=== PATIENT | female | born 1960 | race Caucasian/White ===

== ENCOUNTER 2022-11-06 12:33 | Outpatient (CLI) | payer OTHER, SELFPAY ==
--- NOTE | 2022-11-06 13:30 | XR_ITS ---
WS: [email or web address] SCREENING DEXA SCAN [facility] [employer] CLINICAL INFORMATION: M81.0 - Age-related osteoporosis without current patholog... COMPARISON: None. FINDINGS: The L1-L4 bone mineral density measures 1.062 g/cm2. This corresponds to a T score score of -1.0 and Z score of 0.7. Left femoral neck bone mineral density measures 0.817 g/cm2. This corresponds to a T score of -1.5 an d Z score of -0.3. Right femoral neck bone mineral density measures 0.861 g/cm2. This corresponds to a T score -1.2of an d Z score of 0.1. Mean femoral neck bone mineral density measures 0.839 g/cm2. This corresponds to a T score of -1.3 an d Z score of -0.1. XR/XR DEXA axial skeleton* [id number] IMPRESSION: Osteopenia lumbar spine at the lower end of the range. Osteopenia femoral necks . Patient's FRAX calculated 10 year probability for major osteoporotic fracture i s 10.5 % and osteoporotic hip fracture is 1.5%.
== END 2022-11-06 12:34 | disposition home or self-care (01) ==
LOC: RAD 12:38
PROVIDERS: PCP Nurse Practitioner Family; Visit Provider Nurse Practitioner Family
DX: M81.0 Age-related osteoporosis without current pathological fracture (principal); M85.89 Other specified disorders of bone density and structure, multiple sites
CPT/HCPCS: 77080

== ENCOUNTER → 2023-01-09 10:11 | Outpatient (BNVA) | payer OTHER, SELFPAY | PROVIDERS: PCP Nurse Practitioner Family; Visit Provider Nurse Practitioner Family | DX: E78.5 Hyperlipidemia, unspecified (principal); I10 Essential (primary) hypertension; D64.9 Anemia, unspecified | CPT/HCPCS: 80053; 80061; 85025 ==

== ENCOUNTER → 2023-06-03 11:23 | Outpatient (BNVA) | payer OTHER, SELFPAY | PROVIDERS: PCP Nurse Practitioner Family; Visit Provider Nurse Practitioner Family | DX: E78.5 Hyperlipidemia, unspecified (principal); I10 Essential (primary) hypertension | CPT/HCPCS: 80053; 80061 ==

== ENCOUNTER 2023-07-16 11:27 | Outpatient (CLI) | payer MEDICARE, SELFPAY ==
--- NOTE | 2023-07-16 11:36 | XR_ITS ---
WS: [email or web address] Exam: XR hip BI m 5V wo/w pel* [id number] Date/Time of Exam: 07/16/2023 11:42 AM Reason For Exam: M25.551 - Pain in right hip No fracture or dislocation involving either hip. The bilateral joint compartments are well preserved. Normal bilateral soft tissues. Small nonspecific calcification along the LEFT greater trochanter. IMPRESSION: 1. No fracture or other significant finding.
== END 2023-07-16 11:28 | disposition home or self-care (01) ==
PROVIDERS: PCP Nurse Practitioner Family; Visit Provider Nurse Practitioner Family
DX: M25.551 Pain in right hip (principal); M25.552 Pain in left hip
CPT/HCPCS: 73523

== ENCOUNTER 2023-09-03 09:04 | Outpatient (CLI) | payer MEDICARE, SELFPAY ==
--- NOTE | 2023-09-03 09:30 | MR_ITS ---
WS: [email or web address] MRI RIGHT HIP WITHOUT CONTRAST. COMPARISON: Radiograph 07/16/2023 Multiplanar, multisequence imaging is performed without contrast. No marrow edema or acute fracture is identified. There is very mild narrowing of the RIGHT hip joint but no significant effusion. There is abnormal signal involving the RIGHT gluteus minimus muscle and tendon. There is abnormal sig nal in the tendon over the greater trochanter. There is a focal fluid gap just lateral and inferior t o the greater trochanter and the gluteus minimus tendon. There is edema throughout the gluteus minimu s muscle and fluid along the tendon sheath. Mild atrophy of the RIGHT gluteus minimus muscle. No additional soft tissue or bone abnormalities. Mild bladder wall irregularity and hypertrophy. In p art this is due to under distention. IMPRESSION: 1. Abnormality involving the RIGHT gluteus minimus muscle and tendon. Distal gluteus minimus tendon t ear over the greater trochanter. There is a fluid gap within the tendon and fluid extends along the t endon sheath. 2. Very mild atrophy with edema involving the RIGHT gluteus minimus muscle. 3. No fracture.
== END 2023-09-03 09:05 | disposition home or self-care (01) ==
LOC: RAD 09:05
PROVIDERS: PCP Nurse Practitioner Family; Visit Provider Nurse Practitioner Family
DX: S76.011A Strain of muscle, fascia and tendon of right hip, initial encounter (principal); X58.XXXA Exposure to other specified factors, initial encounter; R60.0 Localized edema
CPT/HCPCS: 73721

== ENCOUNTER 2023-09-10 09:37 | Outpatient (CLI) | payer MEDICARE, SELFPAY ==
--- NOTE | 2023-09-10 09:49 | XRR_ITS ---
PROCEDURE INFORMATION: Exam: XR Right Mandible Exam date and time: 09/10/2023 10:09 AM Age: 62 years old Clinical indication: Jaw pain; Prior surgery; Surgery date: 1-6 months; Surgery type: Tooth pulled 5 months ago on right side and still having pain; Additional info: R68.84 - jaw pain TECHNIQUE: Imaging protocol: XR of the right mandible. Views: 4 or more views COMPARISON: No relevant prior studies available. FINDINGS: Sinuses: Well aerated. No opacification. Bones/joints: No fracture. No lytic or sclerotic bone lesion. Soft tissues: Unremarkable. XR/XR mandible <4V [id number] IMPRESSION: No acute abnormality.
== END 2023-09-10 09:38 | disposition home or self-care (01) ==
LOC: RAD 09:39
PROVIDERS: PCP Nurse Practitioner Family; Visit Provider Nurse Practitioner Family
DX: R68.84 Jaw pain (principal)
CPT/HCPCS: 70100

== ENCOUNTER → 2023-09-23 14:59 | Outpatient (BNVA) | payer MEDICARE, SELFPAY | PROVIDERS: PCP Nurse Practitioner Family; Visit Provider Nurse Practitioner Family | DX: K04.7 Periapical abscess without sinus (principal) | CPT/HCPCS: 87070; 87184 ==

== ENCOUNTER → 2023-11-03 10:14 | Outpatient (BNVA) | payer MEDICARE, SELFPAY | PROVIDERS: PCP Nurse Practitioner Family; Visit Provider Specialist | DX: M70.61 Trochanteric bursitis, right hip; S76.011A Strain of muscle, fascia and tendon of right hip, initial encounter; W19.XXXA Unspecified fall, initial encounter | CPT/HCPCS: 20610; 73502; 99204 ==

== ENCOUNTER 2023-11-13 06:00 | Outpatient (RCR) | payer MEDICARE, SELFPAY | END 2023-11-20 23:59 | disposition home or self-care (01) | LOC: WPT 06:00 | PROVIDERS: Visit Provider Specialist | DX: M70.60 Trochanteric bursitis, unspecified hip (principal) | CPT/HCPCS: 97110; 97112; 97161; 97530 ==

== ENCOUNTER 2023-11-21 06:00 | Outpatient (RCR) | payer MEDICARE, SELFPAY | END 2023-12-21 23:59 | disposition home or self-care (01) | LOC: WPT 06:00 | PROVIDERS: Visit Provider Specialist | DX: M70.60 Trochanteric bursitis, unspecified hip (principal) | CPT/HCPCS: 97110; 97112; 97140; 97530 ==

== ENCOUNTER 2023-12-22 06:00 | Outpatient (RCR) | payer MEDICARE, SELFPAY | END 2024-01-20 23:59 | disposition home or self-care (01) | LOC: WPT 06:00 | PROVIDERS: Visit Provider Specialist | DX: M70.60 Trochanteric bursitis, unspecified hip (principal) | CPT/HCPCS: 97110; 97112; 97140; 97530 ==

== ENCOUNTER 2024-01-08 09:22 | Outpatient (CLI) | payer MEDICARE, SELFPAY ==
--- NOTE | 2024-01-08 09:31 | XR_ITS ---
WS: [email or web address] Exam: XR lumbar spine 2-3V* [id number] Date/Time of Exam: 01/08/2024 9:37 AM Reason For Exam: M54.9 - Dorsalgia, unspecified No acute fracture or dislocation. Mild degenerative anterolisthesis of L4 on L5 secondary to degenera tive facet change. The disc relatively well-maintained. Levoscoliosis. Facet DJD noted from L3-S1. IMPRESSION: 1. Degenerative changes and mild levoscoliosis. 2. No fracture or malalignment. 3. Mild degenerative anterolisthesis of L4 on L5 of about 3 mm.
== END 2024-01-08 09:23 | disposition home or self-care (01) ==
PROVIDERS: PCP Nurse Practitioner Family; Visit Provider Nurse Practitioner Family
DX: M54.50 Low back pain, unspecified (principal); M43.16 Spondylolisthesis, lumbar region; M47.816 Spondylosis without myelopathy or radiculopathy, lumbar region
CPT/HCPCS: 72100; 85651; 86038; 86140; 86431

== ENCOUNTER 2024-01-27 08:22 | Outpatient (CLI) | payer MEDICARE, SELFPAY ==
--- NOTE | 2024-01-27 08:45 | MR_ITS ---
WS: [email or web address] MRI LUMBAR SPINE NONCONTRAST TECHNIQUE: Sagittal T1, T2 and STIR imaging. Axial T1 and T2 imaging. CLINICAL INFORMATION: M54.9 - Dorsalgia, unspecified COMPARISON: 2006 FINDINGS: Counting performed from the craniocervical junction. Mild lumbar curve convex LEFT. 4 nonrib-bearing lumbar vertebral bodies labeled 1 through 4 for the purposes of this dictation. First sacral segment considered L5. Small riblets at T12. Small disc protrusions in the cervical spine [facility] at C5-C6 and C6-C7 with slight contact of the cervical cord. L1-L2: Mild annular bulging. Mild facet arthropathy. Slight narrowing of the subarticular recess bila terally. L2-L3: Mild annular bulging. Mild central canal stenosis. Impingement on the subarticular recess bila terally. Moderate facet arthropathy. LEFT foraminal protrusion with mild LEFT foraminal narrowing. RI GHT foramen is patent. L3-L4: Mild annular bulging with moderate central canal stenosis. Moderate facet arthropathy. Small f acet effusions. Mild RIGHT foraminal narrowing. LEFT foramen is patent. L4-L5: Mild annular bulging. Moderate facet arthropathy. Small facet effusions. Slight effacement of the ventral thecal sac. Foramen are patent. L5-S1: L5 is sacralized. Spinal canal and foramen are patent. Visualized pelvic bony structures: Normal. Paravertebral soft tissues: Normal. MR/MR lumbar spine wo con* [id number] IMPRESSION: 1. Counting performed from the craniocervical junction. 4 nonrib-bearing lum bar vertebral bodies labeled 1 through 4 for the purposes of this dictation. Sm all riblets at T12. First sacral segment considered L5. 2. Mild lumbar curve convex LEFT. No acute compression fractures. 3. Mild central canal stenosis L2-3 and moderate central canal stenosis L3-4. This is new since 2005. 4. Mild LEFT L2-3 foraminal narrowing. 5. Moderate facet arthropathy L3-L4 and L4-L5.
== END 2024-01-27 08:23 | disposition home or self-care (01) ==
LOC: RAD 08:22
PROVIDERS: PCP Nurse Practitioner Family; Visit Provider Nurse Practitioner Family
DX: M54.9 Dorsalgia, unspecified (principal); M48.061 Spinal stenosis, lumbar region without neurogenic claudication; M47.816 Spondylosis without myelopathy or radiculopathy, lumbar region
CPT/HCPCS: 72148

== ENCOUNTER 2024-02-24 06:00 | Outpatient (RCR) | payer MEDICARE, SELFPAY | END 2024-03-21 23:59 | disposition home or self-care (01) | LOC: WPT 06:00 | PROVIDERS: PCP Nurse Practitioner Family; Visit Provider Nurse Practitioner Family | DX: M51.36 Other intervertebral disc degeneration, lumbar region (principal) | CPT/HCPCS: 97110; 97112; 97140; 97161; 97530 ==

== ENCOUNTER 2024-03-22 06:00 | Outpatient (RCR) | payer MEDICARE, SELFPAY | END 2024-04-21 23:59 | disposition home or self-care (01) | LOC: WPT 06:00 | PROVIDERS: PCP Nurse Practitioner Family; Visit Provider Nurse Practitioner Family | DX: M51.36 Other intervertebral disc degeneration, lumbar region (principal) | CPT/HCPCS: 97110; 97112; 97530 ==

== ENCOUNTER → 2024-08-26 09:23 | Outpatient (BNVA) | payer MEDICARE, SELFPAY | PROVIDERS: PCP Nurse Practitioner Family; Visit Provider Nurse Practitioner Family | DX: I10 Essential (primary) hypertension (principal) | CPT/HCPCS: 80053; 80061 ==

== ENCOUNTER → 2025-03-16 08:43 | Outpatient (BNVA) | payer MEDICARE, SELFPAY | PROVIDERS: PCP Nurse Practitioner Family; Visit Provider Nurse Practitioner Family | DX: I10 Essential (primary) hypertension (principal); N39.0 Urinary tract infection, site not specified | CPT/HCPCS: 80053; 80061; 81000; 84443; 87077; 87086; 87184 ==

== ENCOUNTER 2025-03-21 11:19 | Outpatient (CLI) | payer MEDICARE, SELFPAY ==
--- NOTE | 2025-03-21 11:40 | MM_ITS ---
WS: [email or web address] BILATERAL 3D TOMOSYNTHESIS DIGITAL SCREENING MAMMOGRAPHY WITH CAD CLINICAL INFORMATION: Z12.39 - Encounter for other screening for malignant neop... HISTORY: Screening mammogram. No current complaints. COMPARISON: 2023 TECHNIQUE: Bilateral CC and MLO views. FINDINGS: The breasts are composed of heterogeneous fibroglandular density tissue, which can limit the detection of small underlying mass lesions. No suspicious mass, asymmetry, calcifications, or architectural distortion. No evidence of malignancy. Coarse benign calcifications LEFT breast. Skin calcifications RIGHT breast posteriorly MM/MM [facility] tomosynthesis [id number] IMPRESSION: DENSITY: The breasts are heterogeneously dense, which may obscure small masses. BI-RADS: 2 - Benign FOLLOW UP: 1 Year Follow-up Recommend return to annual screening mammography.
== END 2025-03-21 11:20 | disposition home or self-care (01) ==
LOC: RAD 11:20
PROVIDERS: PCP Nurse Practitioner Family; Visit Provider Nurse Practitioner Family
DX: Z12.31 Encounter for screening mammogram for malignant neoplasm of breast (principal); R92.333 Mammographic heterogeneous density, bilateral breasts; R92.1 Mammographic calcification found on diagnostic imaging of breast
CPT/HCPCS: 77063; 77067

== ENCOUNTER → 2025-03-24 08:23 | Outpatient (BNVA) | payer MEDICARE, SELFPAY | PROVIDERS: PCP Nurse Practitioner Family; Visit Provider Nurse Practitioner Family | DX: N39.0 Urinary tract infection, site not specified (principal) | CPT/HCPCS: 87086 ==

== ENCOUNTER → 2025-05-12 10:08 | Outpatient (BNVA) | payer MEDICARE, SELFPAY | PROVIDERS: PCP Nurse Practitioner Family; Visit Provider Nurse Practitioner Family | DX: I78.8 Other diseases of capillaries (principal); L82.1 Other seborrheic keratosis; L57.8 Other skin changes due to chronic exposure to nonionizing radiation; X32.XXXA Exposure to sunlight, initial encounter; L81.4 Other melanin hyperpigmentation; L57.3 Poikiloderma of Civatte; D48.5 Neoplasm of uncertain behavior of skin | CPT/HCPCS: 11102; 99203 ==

== ENCOUNTER → 2025-08-25 08:12 | Outpatient (BNVA) | payer MEDICARE, SELFPAY | PROVIDERS: PCP Nurse Practitioner Family; Visit Provider Nurse Practitioner Family | DX: D04.5 Carcinoma in situ of skin of trunk (principal); I78.8 Other diseases of capillaries; L82.1 Other seborrheic keratosis; L57.8 Other skin changes due to chronic exposure to nonionizing radiation; X32.XXXA Exposure to sunlight, initial encounter; L81.4 Other melanin hyperpigmentation; L57.3 Poikiloderma of Civatte; Z09 Encounter for follow-up examination after completed treatment for conditions other than malignant neoplasm; Z87.2 Personal history of diseases of the skin and subcutaneous tissue | CPT/HCPCS: 99213 ==